=== PATIENT | male | born 1985 | race Caucasian/White ===

== ENCOUNTER 2024-11-21 12:43 | Inpatient (IN) | payer MEDICAID, SELFPAY ==
--- NOTE | ~2024-11-21 | XR_ITS ---
EXAMINATION: XR HAND 3 OR MORE VIEWS RIGHT HISTORY: Redness and swelling. Cat bite. Osteo? COMPARISON: There are no prior studies available for comparison. FINDINGS: Three views of the right hand are submitted. Osseous mineralization is normal. There is no fracture or dislocation. The joint spaces are preserved. The soft tissues are unremarkable. XR/XR hand RT min 3V IMPRESSION: Unremarkable examination of the right hand. Electronically signed by: Abraham Calvillo MD 11/21/2024 02:34 PM EDT
[2024-11-21 13:26] VITALS: BP 126/88; PULSE 77; RESP 18; TEMP 36.8; O2SAT 98; BMI 40.1
--- NOTE | 2024-11-21 13:38 | ED.GENADULT ---
HPI - General Adult General Chief complaint: Animal Bite Stated complaint: Infected cat bite Time Seen by Provider: 11/21/24 16:44 Source: patient Mode of arrival: ambulatory Limitations: no limitations History of Present Illness ED Provider: SANTINO HPI narrative: 39 yo male with PMH of HTN he is L hand dominant his cat is UTD on rabies and he was going to sit for a family members dog when his cat tried to attack the dog and he intervened. He washed it and then noted today it was more red and swollen going up the arm. No fevers or chills. Tdap UTD complaint: cat bite infection Onset (ago): day(s) (1) Location: right and upper extremity Radiation: non-radiation Severity: mild Quality: aching Pain Consistency: intermittent Relieving factors: none Exacerbating factors: movement Associated symptoms: rash Treatments prior to arrival: none Related Data Home Medications ?Medication ?Instructions ?Recorded ?Confirmed metoprolol tartrate 25 mg tablet 25 mg PO BID 11/21/24 11/21/24 Allergies Allergy/AdvReac Type Severity Reaction Status Date / Time No Known Allergies Allergy Verified 11/21/24 13:28 Review of Systems Review of Systems: Constitutional : No Fever, No Chills ENT/Mouth : No sore throat, No Rhinorrhea Eyes: No Eye Pain, No Swelling, No Redness Cardiovascular : No Chest Pain, No SOB Respiratory : No Cough, No Sputum Gastrointestinal : No Nausea, No Vomiting, No Diarrhea, No abdominal Pain Genitourinary : No Dysuria, No Hematuria Musculoskeletal : No joint pain, No Myalgias, No Joint Swelling Skin : No Skin Lesions, positive skin rash Neuro : No Weakness, No Numbness, No Headache Psych : No Anxiety, No Depression Heme/Lymph: No Bruising, No Bleeding,No Lymphadenopathy Endocrine : No Polyuria, No Polydipsia All other systems reviewed and are negative [facility] Past Medical History Attestation statement: The following information was validated with the patient. Source: old records reviewed Medical History HTN (hypertension) Social History Social History Household Members: None Housing: House Do you presently have visiting nurse or other home services: No Alcohol intake: current Alcohol intake frequency: 3 or more drinks per day Alcohol type: beer and hard liquor Patient Tobacco Use Status: Never used Tobacco Physical Exam ED Vital Signs: Vital Signs - 24 hr 11/21/24 13:26 11/21/24 17:03 Temperature 98.3 F 97.9 F Pulse Rate 77 72 Respiratory Rate 18 18 Blood Pressure 126/88 150/94 H Pulse Oximetry 98 99 Oxygen Delivery Method Room Air Room Air BMI result Body Mass Index 40.1 Appearance: Alert. Oriented X3. No acute distress. Eyes: Pupils equal, round and reactive to light. ENT: Pharynx normal. Neck: Normal inspection. Neck supple. CVS: Normal heart rate and rhythm. Pulses normal. Respiratory: No respiratory distress. Breath sounds normal. Abdomen: Soft and nontender. Skin: Skin warm and dry. Normal skin color. Normal skin turgor. Extremities: No lower extremity edema. R hand dorsum and forearm redness and warmth - NV intact, normal flex/ext there are multiple areas of puncture wounds and scant yellow drainage from one. compartments are soft and compressible Neuro: Oriented X 3. No motor deficit. No sensory deficit. CN2-12 intact Course Course Course Narrative: RME; 39-year-old male presents to ED for right hand swelling and redness after being bit by his cat yesterday. Patient reports case cat up-to-date with rabies. Patient denies any fever or chills. Exam positive for significant right hand swelling with erythema. Labs x-ray ordered Medications Administered Generic Name Dose Route Start Last Admin Trade Name Freq PRN Reason Stop Dose Admin Enoxaparin Sodium 40 mg 11/21/24 18:45 11/21/24 19:45 Enoxaparin Sodium 40 Mg/0.4 Ml Syringe SUBCUT 40 mg Q24H TERRIE Administration Folic Acid 1 mg 11/21/24 19:00 11/21/24 19:55 Folic Acid 1 Mg Tablet PO 1 mg DAILY TERRIE Administration Ampicillin Sodium/Sulbactam 100 mls @ 200 mls/hr 11/21/24 23:00 11/22/24 05:35 Sodium 3 gm/ Sodium Chloride IV Infused Q6H TERRIE Infusion Metoprolol Tartrate 25 mg 11/21/24 21:00 11/21/24 20:37 Metoprolol Tartrate 25 Mg Tablet PO 25 mg BID TERRIE Administration Protocol Sodium Chloride 3 ml 11/22/24 00:00 11/21/24 23:33 0.9 % Sodium Chloride Flush 3 Ml Syringe IVFLUSH 3 ml QSHIFT TERRIE Administration Thiamine HCl 100 mg 11/21/24 19:00 11/21/24 19:55 Thiamine Hcl 100 Mg Tablet PO 100 mg DAILY TERRIE Administration Discontinued Medications Generic Name Dose Route Start Last Admin Trade Name Shajiq PRN Reason Stop Dose Admin Piperacillin Sod/Tazobactam 50 mls @ 100 mls/hr 11/21/24 16:57 11/21/24 18:16 Sod 3.375 gm/ Sodium Chloride IV 11/21/24 17:26 Infused ONCE ONE Infusion Vancomycin HCl 2,000 mg in 500 mls @ 250 mls/hr 11/21/24 16:57 11/21/24 20:36 Vancomycin/Ns IV 11/21/24 18:56 Infused ONCE ONE Infusion Medical Decision Making Medical Decision Making [facility] Narrative: 39 yo male with PMH of HTN he is L hand dominant here s/p cat bite on R hand with obvious cellulitis at this time will need labs, cultures, xray for FB and IV antibiotics - suspect cellulitis. Differential Diagnosis Differential Diagnoses: The differential diagnosis associated with the presentation includes puncture wound, cellulitis, cat bite Admission/Observation Consideration of admission/observation: Escalation of care including admission/observation considered given cellulitis and cat bite will admit overnight for IV abx Consult Healthcare Provider Management of the patient was discussed with: Hospitalist (will admit) Lab Data [facility] Lab Attestation statement: I reviewed the patient's lab results. 11/22/24 05:24 11/22/24 05:24 Labs: Lab Results 11/21/24 11/21/24 Range/Units 13:53 13:54 WBC 7.0 (4.8-10.8) X10*3/uL RBC 5.16 (4.60-5.80) X10*6/uL Hgb 16.1 (14.0-18.0) g/dl Hct 45.2 (42.0-52.0) % MCV 87.6 (80.0-98.0) fL MCH 31.2 (27.0-33.0) pg MCHC 35.6 (31.0-36.0) g/dl RDW 12.1 (11.0-16.0) % Plt Count 181 (160-400) X10*3/uL MPV 9.8 (9.4-12.4) fL Immature Gran % (Auto) 0.4 (0.0-0.4) % Neut % (Auto) 63.4 (45-73) % Lymph % (Auto) 24.7 (20-40) % [place] % (Auto) 8.7 (2-11) % Eos % (Auto) 2.7 (0-4) % Baso % (Auto) 0.1 (0-2) % Lymph # (Auto) 1.7 (1.2-4.9) X10*3/uL [place] # (Auto) 0.6 (0.1-1.2) X10*3/uL Eos # (Auto) 0.2 (0.0-0.4) X10*3/uL Baso # (Auto) 0.0 (0.0-0.2) X10*3/uL Abs Immat Gran (auto) 0.03 (0.00-0.03) X10*3/uL Absolute Neuts (auto) 4.4 (2.0-8.3) x10*3/uL Absolute Nucleated RBC 0.000 (0.0-0.012) X10*3/uL Nucleated RBC % (auto) 0.0 (0.0-0.2) /100WBC ESR 2 (0-15) MM/HR Sodium 139 (135-145) mmol/L Potassium 4.1 (3.3-5.1) mmol/L Chloride 105 (96-108) mmol/L Carbon Dioxide 27 (22-29) mmol/L Anion Gap 11 L (12-20) BUN 9 (9-16) mg/dL Creatinine 0.79 (0.5-1.4) mg/dL Estim Creat Clear Calc 161.0 Estimated GFR > 60 Random Glucose 82 (60-115) mg/dL Lactic Acid 1.3 (0.5-2.0) mmol/L Calcium 9.3 (8.4-10.2) mg/dL Total Bilirubin 0.5 (0.0-1.0) mg/dL AST 28 (5-37) U/L ALT 31 (0-40) U/L Alkaline Phosphatase 51 (39-117) U/L C-Reactive Protein 2.04 H (< or = 0.50) mg/dL Total Protein 7.2 (6.5-8.0) g/dL Albumin 4.2 (3.5-5.0) g/dL Independent Interpretation I performed an independent interpretation of an: Plain X-Ray (no FB) Radiology Impression Discussion of test interpretation with radiology: I have reviewed the radiologist's reading. External Record Review External record reviewed: Outpatient record Discharge Plan Discharge Clinical Impression: Cat bite Qualifiers: Encounter type: initial encounter Qualified Code(s): W55.01XA - Bitten by cat, initial encounter Cellulitis Qualifiers: Site of cellulitis: extremity Site of cellulitis of extremity: upper extremity Laterality: left Qualified Code(s): L03.114 - Cellulitis of left upper limb Patient Disposition: Admitted As Inpatient Interventions: Admission Worksheet (ED) Last Done: 11/21/24 23:56 Discharge Date/Time: 11/22/24 00:14
[2024-11-21 14:01] LABS: MANUAL DIFF FLAG NO
[2024-11-21 14:04] LABS: Basophils Percent Auto 0.1 % (0-2); Eosinophils Absolute Auto 0.2 X10*3/uL (0.0-0.4); Eosinophils Percent Auto 2.7 % (0-4); Hematocrit 45.2 % (42.0-52.0); Hemoglobin 16.1 g/dl (14.0-18.0); Imm Gran Abs Auto 0.03 X10*3/uL (0.00-0.03); Imm Gran Pct Auto 0.4 % (0.0-0.4); Lymphocytes Absolute Auto 1.7 X10*3/uL (1.2-4.9); Lymphocytes Percent Auto 24.7 % (20-40); Mean Corpuscular HGB Conc 35.6 g/dl (31.0-36.0); Mean Corpuscular Hemoglobin 31.2 pg (27.0-33.0); Mean Corpuscular Volume 87.6 fL (80.0-98.0); Mean Platelet Volume 9.8 fL (9.4-12.4); Monocytes Absolute Auto 0.6 X10*3/uL (0.1-1.2); Monocytes Percent Auto 8.7 % (2-11); Neutrophils Absolute Auto 4.4 x10*3/uL (2.0-8.3); Neutrophils Percent Auto 63.4 % (45-73); Platelet Count 181 X10*3/uL (160-400); Red Blood Count 5.16 X10*6/uL (4.60-5.80); Red Cell Distribution Width 12.1 % (11.0-16.0)
[2024-11-21 14:24] LABS: Lactic Acid 1.3 mmol/L (0.5-2.0)
[2024-11-21 14:27] LABS: Alanine Aminotransferase 31 U/L (0-40); Albumin Level 4.2 g/dL (3.5-5.0); Anion Gap 11 (12-20); Aspartate Amino Transferase 28 U/L (5-37); Bilirubin Total 0.5 mg/dL (0.0-1.0); Blood Urea Nitrogen 9 mg/dL (9-16); C Reactive Protein 2.04 mg/dL (< or = 0.50); Calcium 9.3 mg/dL (8.4-10.2); Carbon Dioxide 27 mmol/L (22-29); Chloride 105 mmol/L (96-108); Estimated Glomerular Filt Rate > 60; Glucose Random 82 mg/dL (60-115); Potassium 4.1 mmol/L (3.3-5.1); Sodium 139 mmol/L (135-145); Total Protein 7.2 g/dL (6.5-8.0)
[2024-11-21 14:43] LABS: Erythrocyte Sedimentation Rate 2 MM/HR (0-15)
[2024-11-21 16:51] LABS: Alkaline Phosphatase 51 U/L (39-117)
[2024-11-21 17:03] VITALS: BP 150/94; PULSE 72; RESP 18; TEMP 36.6; O2SAT 99
[2024-11-21] MEDS: Piperacillin Sodium/Tazobactam 3.375 GM in 0.9 % Sodium Chloride 50 ML IV (17:09)
[2024-11-21] MEDS: vancomycin/NS 2,000 MG/500 ML PLAST..BAG 250 MG IV (18:16)
--- NOTE | 2024-11-21 18:36 | PM.IMHP ---
History of Present Illness Date of Service: 11/21/24 Attending physician on admission: Todd Goode Chief Complaint: Cat bite 39-year-old male with history of hypertension who is severely obese with BMI greater than 40 presented to the ED earlier today following a cat bite from yesterday to the right hand. He is left-hand dominant. Reportedly, his cat, who is vaccinated against rabies, lunged at a dog and the patient attempted to intervene and sustained several bites as well as scratches. He did note some erythema to the right hand yesterday but did not seek treatment. This morning, there is significant erythema up to the mid right forearm with significant swelling to the dorsum of the right hand. He is able to open and close his fist. There has been no purulent drainage. No fevers or chills. He does endorse some pressure-like discomfort. In the ED, slightly hypertensive to 150/94, vitals otherwise within normal limits. No leukocytosis. CRP 2.04, ESR 2. X-ray of the right hand negative for any acute osseous abnormalities. He has no known history of MRSA. Denies any illicit drug use or cigarette smoking. He does drink about 6 beers on a daily basis but denies any history of withdrawal. States he has gone several days without drinking in the past. Last drink was last night. In the ED, has been given IV Zosyn and vancomycin Review of Systems Review of Systems: Yes all other systems are reviewed and are negative [facility] Medical History HTN (hypertension) Social History Patient Tobacco Use Status: Never used Tobacco Advance Directives: No Advance Directives Information Provided: No Do you have a plan to hurt others: No Plan Meds Allergies Allergy/AdvReac Type Severity Reaction Status Date / Time No Known Allergies Allergy Verified 11/21/24 13:28 Active Medications: Current Medications Vancomycin HCl (Vancomycin/Ns) 2,000 mg in 500 mls @ 250 mls/hr IV ONCE ONE Stop: 11/21/24 18:56 Last Admin: 11/21/24 18:16 Dose: 250 mls/hr Physical Exam Vital Signs and Narrative: Vital Signs: Last Vital Signs Temp 97.9 F 11/21/24 17:03 Pulse 72 11/21/24 17:03 Resp 18 11/21/24 17:03 BP 150/94 H 11/21/24 17:03 Pulse Ox 99 11/21/24 17:03 O2 Del Method Room Air 11/21/24 17:03 BMI result Body Mass Index 40.1 Constitutional - Awake and Alert, No apparent distress Eyes - PERRLA, EOMI Cardiovascular - S1S2, RRR, No edema Respiratory - Normal lung expansion, Normal respiratory effort, No respiratory distress, CTA bilaterally Extremities - significant swelling and erythema over the dorsum of the hand and fingers. Erythema extending to the mid right forearm. There are several punctures to the dorsum of the right hand as well as a scratch to the wrist and 1st finger. There is no significant fluctuance. Psychological - Appropriate affect Results Labs 11/21/24 13:54 11/21/24 13:53 Labs: Laboratory Results - last 24 hr 11/21/24 11/21/24 13:53 13:54 MCV 87.6 MCH 31.2 MCHC 35.6 RDW 12.1 Plt Count 181 MPV 9.8 Immature Gran % (Auto) 0.4 Neut % (Auto) 63.4 Lymph % (Auto) 24.7 [place] % (Auto) 8.7 Eos % (Auto) 2.7 Baso % (Auto) 0.1 Lymph # (Auto) 1.7 [place] # (Auto) 0.6 Eos # (Auto) 0.2 Baso # (Auto) 0.0 Abs Immat Gran (auto) 0.03 Absolute Neuts (auto) 4.4 Absolute Nucleated RBC 0.000 Nucleated RBC % (auto) 0.0 ESR 2 Anion Gap 11 L Estim Creat Clear Calc 161.0 Estimated GFR > 60 Random Glucose 82 Lactic Acid 1.3 Calcium 9.3 Total Bilirubin 0.5 AST 28 ALT 31 Alkaline Phosphatase 51 C-Reactive Protein 2.04 H Total Protein 7.2 Albumin 4.2 Imaging Radiologist's Impressions: Impressions Hand X-Ray 11/21/24 13:36 IMPRESSION: Unremarkable examination of the right hand. Electronically signed by: Abraham Calvillo MD 11/21/2024 02:34 PM EDT RP Assessment and Plan (1) Cellulitis: Qualifiers: Laterality: left Site of cellulitis: extremity Site of cellulitis of extremity: upper extremity Qualified Code(s): L03.114 - Cellulitis of left upper limb Status: Acute (2) Cat bite: Qualifiers: Encounter type: initial encounter Qualified Code(s): W55.01XA - Bitten by cat, initial encounter Status: Acute Plan 39-year-old male with history of hypertension who is severely obese with BMI greater than 40 admitted for further evaluation and management of acute cellulitis of the right hand secondary to cat bite Acute cellulitis right hand due to cat bite Patient is own cat fully vaccinated against rabies No leukocytosis. CRP minimally elevated at 2, ESR 2. XR negative for any acute osseous abnormalities No appreciable drainable abscess IV Unasyn (initiated 11/21) Pain management p.r.n. using pain scale Follow CBC, cultures Hypertension Continue metoprolol Obesity class III BMI 40.1 Weight loss efforts encouraged Alcohol use disorder Monitor on CIWA P.o. thiamine and folic acid DVT prophylaxis-Lovenox Full code Patient requires inpatient stay at least 2 midnights for management of acute cellulitis of the right hand due to cat bite which will require IV antibiotics and close monitoring for decompensation Quality Stroke Does the patient have a stroke diagnosis?: No VTE Prior VTE?: No VTE Risk Level:: Medical - moderate - high VTE Device Contraindication: Treatment Not Indicated VTE Drug Contraindication: N/A - Med Ordered
[2024-11-21] MEDS: Enoxaparin Sodium 40 MG/0.4 ML SYRINGE SUBCUT (19:45)
[2024-11-21] MEDS: Folic Acid 1 MG TABLET PO (19:55)
[2024-11-21] MEDS: Thiamine HCL 100 MG TABLET PO (19:55)
--- NOTE | 2024-11-21 20:00 | PHA.MEDREC ---
Addendum entered by Jeet Erickson [facility] 11/21/24 20:05: Med rec reviewed Original Note: Pharmacy Consult ? Medication Reconciliation Pharmacy has completed the medication reconciliation. Patient states he only takes Metoprolol Tart 25 mg , last filled 07/21/24 for 90 days. Patient states he last took his medication today.
[2024-11-21 20:10] VITALS: BP 162/87; PULSE 81; RESP 20; TEMP 36.6; O2SAT 95
[2024-11-21 20:37] VITALS: BP 135/82; PULSE 79
[2024-11-21] MEDS: Metoprolol Tartrate 25 MG TABLET PO (20:37)
[2024-11-21 22:56] VITALS: BP 136/80; PULSE 72; RESP 18; TEMP 36.7; O2SAT 95
[2024-11-21] MEDS: Ampicillin Sodium/Sulbactam Na 3 GM in 0.9 % Sodium Chloride 100 ML IV (23:00)
[2024-11-21] MEDS: 0.9 % Sodium Chloride Flush 3 ML SYRINGE IVFLUSH (23:33)
[2024-11-22 00:26] VITALS: BMI 40.2
[2024-11-22 00:35] VITALS: BP 139/79; PULSE 76; RESP 18; TEMP 36.6; O2SAT 94
[2024-11-22 03:05] VITALS: BP 112/62; PULSE 71; RESP 18; TEMP 36.6; O2SAT 96
[2024-11-22] MEDS: Ampicillin Sodium/Sulbactam Na 3 GM in 0.9 % Sodium Chloride 100 ML IV ×4 (05:04→22:53)
[2024-11-22 05:54] LABS: MANUAL DIFF FLAG NO
[2024-11-22 06:02] LABS: Basophils Percent Auto 0.3 % (0-2); Eosinophils Absolute Auto 0.3 X10*3/uL (0.0-0.4); Eosinophils Percent Auto 4.4 % (0-4); Hematocrit 43.4 % (42.0-52.0); Hemoglobin 15.5 g/dl (14.0-18.0); Imm Gran Abs Auto 0.01 X10*3/uL (0.00-0.03); Imm Gran Pct Auto 0.2 % (0.0-0.4); Lymphocytes Absolute Auto 1.7 X10*3/uL (1.2-4.9); Lymphocytes Percent Auto 29.5 % (20-40); Mean Corpuscular HGB Conc 35.7 g/dl (31.0-36.0); Mean Corpuscular Hemoglobin 31.3 pg (27.0-33.0); Mean Corpuscular Volume 87.5 fL (80.0-98.0); Mean Platelet Volume 9.8 fL (9.4-12.4); Monocytes Absolute Auto 0.6 X10*3/uL (0.1-1.2); Monocytes Percent Auto 9.8 % (2-11); Neutrophils Absolute Auto 3.2 x10*3/uL (2.0-8.3); Neutrophils Percent Auto 55.8 % (45-73); Platelet Count 169 X10*3/uL (160-400); Red Blood Count 4.96 X10*6/uL (4.60-5.80); Red Cell Distribution Width 11.9 % (11.0-16.0); White Blood Count 5.7 X10*3/uL (4.8-10.8)
[2024-11-22 06:12] LABS: Anion Gap 11 (12-20); Blood Urea Nitrogen 13 mg/dL (9-16); Calcium 8.6 mg/dL (8.4-10.2); Carbon Dioxide 25 mmol/L (22-29); Chloride 105 mmol/L (96-108); Creatinine Clr Calc Pharmacy 163.3; Estimated Glomerular Filt Rate > 60; Glucose Random 111 mg/dL (60-115); Potassium 3.8 mmol/L (3.3-5.1); Sodium 137 mmol/L (135-145)
[2024-11-22 07:46] VITALS: BP 131/74; PULSE 75; RESP 14; TEMP 36; O2SAT 95
[2024-11-22] MEDS: Metoprolol Tartrate 25 MG TABLET PO ×2 (08:20→20:25)
[2024-11-22] MEDS: Folic Acid 1 MG TABLET PO (08:21)
[2024-11-22] MEDS: Thiamine HCL 100 MG TABLET PO (08:21)
[2024-11-22] MEDS: oxyCODONE HCl Immed Release 5 MG TABLET PO (08:21)
[2024-11-22] MEDS: 0.9 % Sodium Chloride Flush 3 ML SYRINGE IVFLUSH (08:22)
--- NOTE | 2024-11-22 10:49 | MHC.CM.PN ---
PT LIVES ALONE HAS OWN RIDE HOME IS INDEPENDENT DC PLAN HOME NO SERVICES
--- NOTE | 2024-11-22 13:27 | HO.WOUND ---
Wound Consult: Initial 39yr old?male admitted to [facility] on 11/21/24 - See progress notes and H&P for detailed history.? Wound consult placed for Right Hand for cat bite.? Patient agreeable to assessment and photo documentation.? Right Hand Etiology: ?Cat bite wounds?Present on Admission Wound Bed: various stages of dried scabbed wounds Drainage / Odor: None Edges: ? attached Francia wound: ? Mild erythema, and swelling No Induration, Fluctuance noted Pain: pain reported Goals of Treatment: ? No topical recommendations needed at this time - Elevate right hand on pillows to aid in swelling. Recommendations: Right Hand - Skin remains intact no topical recommendations needed. Recommend elevating hand on pillows to aid in swelling reduction. Re-consult wound care Nurse for wound deterioration or wound changes.
--- NOTE | 2024-11-22 13:48 | P.PNIM_ITS ---
Subjective Subjective Date of Service: 11/22/24 Interval History: seen and evaluated this morning feels better swelling iumproving Review of Systems Review of Systems: Yes all other systems are reviewed and are negative Physical Exam 2 Vital Signs: Vital Signs: Last Vital Signs Temp 96.8 F 11/22/24 07:46 Pulse 75 11/22/24 07:46 Resp 14 11/22/24 07:46 BP 131/74 11/22/24 07:46 Pulse Ox 95 11/22/24 07:46 O2 Del Method Room Air 11/22/24 07:46 BMI result Body Mass Index 40.2 Const: Other: Constitutional : interactive, not in distress Cardiovascular : no JVP, no lower extremity edema Respiratory : bilateral chest movement, not in resp distress Gastrointestinal: soft, lax, Non tender Skin : Warm, Dry, swelling improving, erythema decreasing Neurological : Alert & oriented , No focal deficit Objective Data Active Medications Acetaminophen (Acetaminophen 325 Mg Tablet) 650 mg PO Q6H PRN PRN Reason: Pain, Mild 1-3,fever,headache Calcium Carbonate (Calcium Carbonate 750 Mg Tab.Chew) 750 mg PO Q4H PRN PRN Reason: Heartburn Enoxaparin Sodium (Enoxaparin Sodium 40 Mg/0.4 Ml Syringe) 40 mg SUBCUT Q24H [facility] Last Admin: 11/21/24 19:45 Dose: 40 mg Documented By: LIBBY Folic Acid (Folic Acid 1 Mg Tablet) 1 mg PO DAILY [facility] Last Admin: 11/22/24 08:21 Dose: 1 mg Documented By: CHERYL Ampicillin Sodium/Sulbactam (Sodium 3 gm/ Sodium Chloride) 100 mls @ 200 mls/hr IV Q6H [facility] Last Infusion: 11/22/24 12:01 Dose: Infused Documented By: CHERYL Ketorolac Tromethamine (Ketorolac Tromethamine 30 Mg/Ml Vial) 15 mg IVPUSH Q6H PRN PRN Reason: Pain, Moderate(Pain Scale 4-6) Stop: 11/26/24 18:32 Magnesium Hydroxide (Milk Of Magnesia 30 Ml Oral.Susp) 30 ml PO DAILY PRN PRN Reason: Constipation Melatonin (Melatonin 3 Mg Tablet) 6 mg PO BEDTIME PRN PRN Reason: Insomnia Metoprolol Tartrate (Metoprolol Tartrate 25 Mg Tablet) 25 mg PO BID [facility]; Protocol Last Admin: 11/22/24 08:20 Dose: 25 mg Documented By: CHERYL Oxycodone HCl (Oxycodone Hcl Immed Release 5 Mg Tablet) 5 mg PO Q6H PRN PRN Reason: Pain, Severe (Pain Scale 7-10) Last Admin: 11/22/24 08:21 Dose: 5 mg Documented By: CHERYL Sodium Chloride (0.9 % Sodium Chloride Flush 3 Ml Syringe) 3 ml IVFLUSH QSHIFT [facility] Last Admin: 11/22/24 08:22 Dose: 3 ml Documented By: CHERYL Thiamine HCl (Thiamine Hcl 100 Mg Tablet) 100 mg PO DAILY [facility] Last Admin: 11/22/24 08:21 Dose: 100 mg Documented By: CHERYL Labs 11/22/24 05:24 11/22/24 05:24 Labs: Laboratory Results - last 24 hr 11/21/24 11/21/24 11/22/24 13:53 13:54 05:24 MCV 87.6 87.5 MCH 31.2 31.3 MCHC 35.6 35.7 RDW 12.1 11.9 Plt Count 181 169 MPV 9.8 9.8 Immature Gran % (Auto) 0.4 0.2 Neut % (Auto) 63.4 55.8 Lymph % (Auto) 24.7 29.5 [place] % (Auto) 8.7 9.8 Eos % (Auto) 2.7 4.4 H Baso % (Auto) 0.1 0.3 Lymph # (Auto) 1.7 1.7 [place] # (Auto) 0.6 0.6 Eos # (Auto) 0.2 0.3 Baso # (Auto) 0.0 0.0 Abs Immat Gran (auto) 0.03 0.01 Absolute Neuts (auto) 4.4 3.2 Absolute Nucleated RBC 0.000 0.000 Nucleated RBC % (auto) 0.0 0.0 ESR 2 Anion Gap 11 L 11 L Estim Creat Clear Calc 161.0 163.3 Estimated GFR > 60 > 60 Random Glucose 82 111 Lactic Acid 1.3 Calcium 9.3 8.6 D Total Bilirubin 0.5 AST 28 ALT 31 Alkaline Phosphatase 51 C-Reactive Protein 2.04 H Total Protein 7.2 Albumin 4.2 Assessment and Plan (1) Cellulitis: Status: Acute (2) Cat bite: Status: Acute Plan 39-year-old male with history of hypertension who is severely obese with BMI greater than 40 admitted for further evaluation and management of acute cellulitis of the right hand secondary to cat bite Acute cellulitis right hand due to cat bite own cat fully vaccinated against rabies XR negative for any acute osseous abnormalities No drainable abscess IV Unasyn (initiated 11/21) Pain management p.r.n. using pain scale Follow CBC, cultures Hypertension Continue metoprolol Obesity class III BMI 40.1 Weight loss efforts encouraged Alcohol use disorder Monitor on CIWA P.o. thiamine and folic acid DVT prophylaxis-Lovenox Full code Patient requires inpatient stay at overnight for management of acute cellulitis of the right hand due to cat bite which will require IV antibiotics and close monitoring for decompensation Quality Stroke Does the patient have a stroke diagnosis?: No VTE Prior VTE?: No VTE Risk Level:: Medical - moderate - high VTE Device Contraindication: Treatment Not Indicated VTE Drug Contraindication: N/A - Med Ordered
[2024-11-22 15:55] VITALS: BP 124/60; PULSE 77; RESP 18; TEMP 36.4; O2SAT 95
--- NOTE | 2024-11-22 17:14 | MHC.RECOVRN ---
AUDIT-C Brief Intervention Pt had positive screen for unhealthy alcohol use on admission, subsequently met with t/w to discuss alcohol use and recovery supports/options. This signwriter met with patient to discuss current alcohol use and concerns related to increased risk of alcohol related problems.? Pt reports about 6 beers daily for as long as he can remember. Discussed how alcohol use has impacted health, including negative impact on safety as evidenced by OUI Withdrawal History: denies Treatment History: denies Supports:?non identified Discussed risk reduction strategies including drinking below the recommended limit. Provided pt with written resources including information on inpatient and outpatient treatment, JOHNNY, harm reduction, and recovery coaching. Pt plans to review information provided and is thinking about decreasing intake. Pt provided with t/w contact information if questions or concerns arise. Denies other questions or concerns at this time.
[2024-11-22] MEDS: Enoxaparin Sodium 40 MG/0.4 ML SYRINGE SUBCUT (17:40)
[2024-11-22 18:48] VITALS: BP 128/70; PULSE 75; RESP 16; TEMP 36.3; O2SAT 96
[2024-11-23] MEDS: 0.9 % Sodium Chloride Flush 3 ML SYRINGE IVFLUSH (00:07)
[2024-11-23] MEDS: diphenhydrAMINE HCL 25 MG CAPSULE PO (01:25)
--- NOTE | 2024-11-23 01:26 | PC.NURSE ---
pt c/o being itchy all over, no rash noted.pt asking for a benadryl. notified and benadryl 25mg po x 1 ordered.
[2024-11-23 03:15] VITALS: BP 127/66; PULSE 65; RESP 18; TEMP 36.3; O2SAT 96
[2024-11-23] MEDS: Ampicillin Sodium/Sulbactam Na 3 GM in 0.9 % Sodium Chloride 100 ML IV ×2 (05:20→11:08)
[2024-11-23 06:24] LABS: MANUAL DIFF FLAG NO
[2024-11-23 06:45] LABS: Basophils Percent Auto 0.5 % (0-2); Eosinophils Absolute Auto 0.3 X10*3/uL (0.0-0.4); Eosinophils Percent Auto 5.2 % (0-4); Hematocrit 46.3 % (42.0-52.0); Hemoglobin 16.3 g/dl (14.0-18.0); Imm Gran Abs Auto 0.03 X10*3/uL (0.00-0.03); Imm Gran Pct Auto 0.5 % (0.0-0.4); Lymphocytes Absolute Auto 2.1 X10*3/uL (1.2-4.9); Lymphocytes Percent Auto 32.7 % (20-40); Mean Corpuscular HGB Conc 35.2 g/dl (31.0-36.0); Mean Corpuscular Hemoglobin 31.2 pg (27.0-33.0); Mean Corpuscular Volume 88.5 fL (80.0-98.0); Mean Platelet Volume 9.7 fL (9.4-12.4); Monocytes Absolute Auto 0.6 X10*3/uL (0.1-1.2); Neutrophils Absolute Auto 3.3 x10*3/uL (2.0-8.3); Neutrophils Percent Auto 51.1 % (45-73); Platelet Count 175 X10*3/uL (160-400); Red Blood Count 5.23 X10*6/uL (4.60-5.80); Red Cell Distribution Width 11.9 % (11.0-16.0); White Blood Count 6.4 X10*3/uL (4.8-10.8)
[2024-11-23 07:20] LABS: Anion Gap 13 (12-20); Blood Urea Nitrogen 10 mg/dL (9-16); Calcium 8.7 mg/dL (8.4-10.2); Carbon Dioxide 25 mmol/L (22-29); Chloride 105 mmol/L (96-108); Creatinine Clr Calc Pharmacy 157.2; Estimated Glomerular Filt Rate > 60; Glucose Random 111 mg/dL (60-115); Potassium 3.6 mmol/L (3.3-5.1); Sodium 139 mmol/L (135-145)
[2024-11-23 07:28] VITALS: BP 122/57; PULSE 60; RESP 16; TEMP 36.5; O2SAT 95
[2024-11-23] MEDS: Metoprolol Tartrate 25 MG TABLET PO (08:30)
[2024-11-23] MEDS: Folic Acid 1 MG TABLET PO (08:30)
[2024-11-23] MEDS: Thiamine HCL 100 MG TABLET PO (08:30)
--- NOTE | 2024-11-23 11:20 | P.DS_ITS ---
DS: Providers Provider Date of Service: 11/23/24 Date of admission: 11/21/24 18:33 Date of discharge: 11/23/24 Primary care physician: Jordan Garcia Consults: 11/22/24 00:23 Addiction Medicine Provider Routine Consulting Provider: Addiction Covering Reason for consultation: 5 beers/4x week Consult to Wound Care Routine Reason for consultation: right hand cellulitis DS: Diagnosis Discharge Diagnosis (1) Cellulitis: Status: Acute (2) Cat bite: Status: Acute DS: Summary Hospital Course Hospital Course: Admission note HPI 39-year-old male with history of hypertension who is severely obese with BMI greater than 40 presented to the ED earlier today following a cat bite from yesterday to the right hand. He is left-hand dominant. Reportedly, his cat, who is vaccinated against rabies, lunged at a dog and the patient attempted to intervene and sustained several bites as well as scratches. He did note some erythema to the right hand yesterday but did not seek treatment. This morning, there is significant erythema up to the mid right forearm with significant swelling to the dorsum of the right hand. He is able to open and close his fist. There has been no purulent drainage. No fevers or chills. He does endorse some pressure-like discomfort. In the ED, slightly hypertensive to 150/94, vitals otherwise within normal limits. No leukocytosis. CRP 2.04, ESR 2. X-ray of the right hand negative for any acute osseous abnormalities. He has no known history of MRSA. Denies any illicit drug use or cigarette smoking. He does drink about 6 beers on a daily basis but denies any history of withdrawal. States he has gone several days without drinking in the past. Last drink was last night. In the ED, has been given IV Zosyn and vancomycin. Hospital course The patient was admitted for treatment of acute cellulitis right hand due to cat bite. His own cat fully vaccinated against rabies. XR negative for any acute osseous abnormalities. No drainable abscess. Treated with IV Unasyn initiated 11/21. Pain management p.r.n. using pain scale. Cultures remained negative with significant improvement as pain, swelling and erythema resolved. He will be discharged home on 10 more days of Augmentin. Discharge plan Continue Augmentin for 10 more days Clean and wash hand daily , keep it elevated Tylenol\Advil for pain control Time Attestation Discharge Coordination Time (in mins): 37 Quality: Safe Use of Opioids Does Pt have an Active Cancer Diagnosis on the Problem List?: No Quality: Stroke Does the patient have a stroke diagnosis?: No Physical Exam Vital Signs: Vital Signs: Last Vital Signs Temp 97.7 F 11/23/24 07:28 Pulse 60 11/23/24 07:28 Resp 16 11/23/24 07:28 BP 122/57 L 11/23/24 07:28 Pulse Ox 95 11/23/24 07:28 O2 Del Method Room Air 11/23/24 07:28 BMI result Body Mass Index 40.2 Const: Other: Constitutional : interactive, not in distress Cardiovascular : no JVP, no lower extremity edema Respiratory : bilateral chest movement, not in resp distress Gastrointestinal: soft, lax, Non tender Skin : Warm, Dry, swelling resolving, erythema resolved, full range of motion Neurological : Alert & oriented , No focal deficit DS: Data Data Completed and Pending Labs on day of discharge: Laboratory Results - last 24 hr 11/23/24 06:03 WBC 6.4 RBC 5.23 Hgb 16.3 Hct 46.3 MCV 88.5 MCH 31.2 MCHC 35.2 RDW 11.9 Plt Count 175 MPV 9.7 Immature Gran % (Auto) 0.5 H Neut % (Auto) 51.1 Lymph % (Auto) 32.7 [place] % (Auto) 10.0 Eos % (Auto) 5.2 H Baso % (Auto) 0.5 Lymph # (Auto) 2.1 [place] # (Auto) 0.6 Eos # (Auto) 0.3 Baso # (Auto) 0.0 Abs Immat Gran (auto) 0.03 Absolute Neuts (auto) 3.3 Absolute Nucleated RBC 0.000 Nucleated RBC % (auto) 0.0 Sodium 139 Potassium 3.6 Chloride 105 Carbon Dioxide 25 Anion Gap 13 BUN 10 Creatinine 0.81 Estim Creat Clear Calc 157.2 Estimated GFR > 60 Random Glucose 111 Calcium 8.7 Preliminary micro results at discharge 11/21/24 13:53 Blood Culture - Preliminary Blood - Venous No growth after 24 hours. 11/21/24 13:53 Blood Culture - Preliminary Blood - Venous No growth after 24 hours. Imaging Chest x-ray: Radiologist's impression: ITS Impressions Hand X-Ray 11/21/24 13:36 IMPRESSION: Unremarkable examination of the right hand. Electronically signed by: Abraham Calvillo MD 11/21/2024 02:34 PM EDT RP Discharge Plan Discharge Anticipated Discharge Date/Time: 11/23/24 11:17 Patient Disposition: Home, Self-Care Discharge Diagnosis: Cat bite: cellulitis Referrals: [facility] [Primary Care Provider] - 1 Week Discharge Medications: New amoxicillin-pot clavulanate 875-125 mg tablet 1 tab PO BID Qty: 20 0RF Continued metoprolol tartrate 25 mg tablet 25 mg PO BID Discharge Orders: Discharge Order (Routine); Ordered 11/23/24 Ordered By: Antoine Duenas Diet: Advance to usual diet Activity on Discharge: As tolerated Stand Alone Forms: Patient Portal Discharge page Print Language: Khmer Care Plan Goals: Continue Augmentin for 10 more days Clean and wash hand daily , keep it elevated Tylenol\Advil for pain control Health Concerns: Cat bite cellulitis Plan of Treatment: antibiotics Assessment: As above
--- NOTE | 2024-11-23 12:05 | MHC.CM.PN ---
PT WILL DC HOME TODAY WITH NO SERVICES VIA PRIVATE TRANSPORT
== END 2024-11-23 12:02 | disposition home or self-care (01) | DRG 383 ==
LOC: HO.ED 18:20 → HO.EDOVER 18:39 → HO.S3 23:39
PROVIDERS: Physician Assistant; Admitting Provider Physician Assistant; Emergency Provider Emergency Medicine; Visit Provider Student in an Organized Health Care Education/Training Program
DX: L03.113 Cellulitis of right upper limb (principal); E66.813 Obesity, class 3; I10 Essential (primary) hypertension; F10.90 Alcohol use, unspecified, uncomplicated; S61.431A Puncture wound without foreign body of right hand, initial encounter; W55.01XA Bitten by cat, initial encounter; Z68.41 Body mass index [BMI] 40.0-44.9, adult
CPT/HCPCS: 36415; 73130; 80048; 80053; 83605; 85025; 85652; 86140; 87040; 99285; J0295; J1650; J2543; J3370; S9485

== ENCOUNTER → 2024-11-21 13:36 | Outpatient (BNV) | payer MEDICAID, SELFPAY | PROVIDERS: Visit Provider Radiology Diagnostic Radiology | DX: S61.451A Open bite of right hand, initial encounter (principal) | CPT/HCPCS: 73130 ==

== ENCOUNTER → 2024-11-21 18:33 | Outpatient (BNV) | payer MEDICAID, SELFPAY | PROVIDERS: Admitting Provider Physician Assistant; Emergency Provider Emergency Medicine; Visit Provider Physician Assistant | DX: L03.113 Cellulitis of right upper limb (principal); W55.01XA Bitten by cat, initial encounter | CPT/HCPCS: 99222; 99232; 99239 ==

== ENCOUNTER 2025-05-09 23:02 | Emergency (ER) | payer MEDICAID, SELFPAY ==
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
[2025-05-09 23:08] VITALS: BP 170/105; PULSE 106; RESP 18; TEMP 36.4; O2SAT 96; BMI 38.0
[2025-05-09 23:23] VITALS: BP 153/118; PULSE 106; RESP 18; TEMP 36.4; O2SAT 96
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
[2025-05-10 02:09] VITALS: BP 150/98; PULSE 95; RESP 18; TEMP 36.4; O2SAT 96
== END 2025-05-10 02:12 | disposition home or self-care (01) ==
PROVIDERS: Emergency Provider Student in an Organized Health Care Education/Training Program
DX: S09.90XA Unspecified injury of head, initial encounter (principal); R51.9 Headache, unspecified; M54.2 Cervicalgia; V43.52XA Car driver injured in collision with other type car in traffic accident, initial encounter; Y93.9 Activity, unspecified; Y92.410 Unspecified street and highway as the place of occurrence of the external cause; Y99.8 Other external cause status
CPT/HCPCS: 70450; 72125; 99284

== ENCOUNTER → 2025-05-09 23:43 | Outpatient (BNV) | payer MEDICAID, SELFPAY | PROVIDERS: Visit Provider Radiology Diagnostic Radiology | DX: Z04.3 Encounter for examination and observation following other accident (principal) | CPT/HCPCS: 70450; 72125 ==